=== PATIENT | female | born 1975 | race Caucasian/White ===

== ENCOUNTER 2017-04-18 06:02 | Emergency (ER) | payer MEDICAID ==
[2017-04-18] MEDS: ONDANSETRON (ODT) 4 MG TAB ODT (07:08)
[2017-04-18] MEDS: HYDROCODONE/APAP (10/325) TAB PO (07:10)
== END 2017-04-18 09:34 | disposition home or self-care (01) ==
LOC: E/R 06:02
DX: S00.12XA Contusion of left eyelid and periocular area, initial encounter (principal); I10 Essential (primary) hypertension; Y08.89XA Assault by other specified means, initial encounter
CPT/HCPCS: 70450; 70480; 99285-25